=== PATIENT | female | born 1940 | race Caucasian/White ===

== ENCOUNTER → 2023-07-31 | Outpatient (REF) | payer MEDICARE ==
[~2023-07-31] MED LIST: ARIC1TAB PO; ASPI81TA21 PO; HYDR12.55 PO; OMEG100011 PO; SIMV40TA20 PO; TRAM50TA2 PO; TYLE325T5 PO; VICO5TAB17 PO; VITA100067 PO
== END ==
LOC: M LAB REF 11:48
PROVIDERS: ATTEND Physician Assistant Medical
DX: R60.0 Localized edema (principal)